=== PATIENT | female | born 1995 | race Caucasian/White ===

== ENCOUNTER 2020-01-08 19:55 | Emergency (ER) | payer BC, SELFPAY ==
[2020-01-08 19:57] VITALS: BP 113/56; PULSE 82; RESP 18; TEMP 37.1; O2SAT 100
--- NOTE | 2020-01-08 20:17 | ED.FALL ---
HPI - Fall General Chief Complaint: Fall Stated Complaint: SKATEBOARD ACCIDENT Time Seen by Provider: 01/08/20 20:07 History of Present Illness HPI Narrative: She had a fall from skateboard while going down a hill. She struck her head on a curb. Unsure of speed. No LOC. Initially felt nauseated and dizzy. Now she has a mild headache. She also sustained abrasions to the forehead, elbows, and forearms. Related Data Home Medications Medication Instructions Recorded Confirmed No Home Medications 01/08/20 01/08/20 Allergies Allergy/AdvReac Type Severity Reaction Status Date / Time No Known Allergies Allergy Unverified 01/08/20 20:13 Review of Systems Review of Systems: All systems reviewed & are unremarkable except as noted in HPI and below Constitutional: Constitutional: Denies fever(s) and Denies weakness Cardiovascular: Cardiovascular: Denies chest pain Respiratory: Respiratory: Denies dyspnea Gastrointestinal: Gastrointestinal: Denies abdominal pain, Reports nausea and Denies vomiting Musculoskeletal: Musculoskeletal: Denies back pain Neurologic: Reports headache(s), Denies numbness and Denies weakness [facility] Social History Social History Gender identity (if verbalized by the patient): Female Exam Const: General: healthy appearing, no acute distress and alert Orientation/consciousness: patient oriented x3 HENMT: Other: Abrasion over the left eye Eyes: Pupils: Equal, round and reactive pupils present EOM: EOMs intact bilaterally Neck: Neck: normal visual inspection and no lymphadenopathy Chest: Chest palpation & inspection: no tenderness Resp: Effort & Inspection: normal respiratory effort Auscultation: clear to auscultation bilaterally, no rales, no rhonchi and no wheezes Cardio: Jugular venous distension: no JVD Rate: regular rate Rhythm: regular rhythm Heart sounds: no murmurs GI: GI Palp: Yes Soft to palpation and No Tenderness to palpation present (GI) Skin: Other: Abrasions to forearms bilaterally Neuro: General: patient oriented x3, moves all extremities, no focal motor deficits and CN's II-XI intact bilaterally Speech: normal speech Gait exam (Neuro): Normal gait present Extrem: General: no edema Psych: Appearance: well kempt Affect: normal affect Course Vital Signs Vital signs: Vital Signs Temperature 37.1 C 01/08/20 19:57 Pulse Rate 82 01/08/20 19:57 Respiratory Rate 18 01/08/20 19:57 Blood Pressure 113/56 L 01/08/20 19:57 Pulse Oximetry 100 01/08/20 19:57 Temperature 37.1 C 01/08/20 19:57 Pulse Rate 82 01/08/20 19:57 Respiratory Rate 16 01/08/20 21:00 Blood Pressure 113/56 L 01/08/20 19:57 Pulse Oximetry 100 01/08/20 19:57 MDM - Fall MDM Narrative Medical decision making narrative: Normal GCS. No deficits. No indication for imaging. Observed for 1 hour with no worsening of symptoms. Discharge Plan Discharge Clinical Impression: Closed head injury Qualifiers: Encounter type: initial encounter Qualified Code(s): S09.90XA - Unspecified injury of head, initial encounter Patient Disposition: Home, Self-Care Condition: Stable Instructions: Head Injury (ED) Prescriptions: No Action No Home Medications RF: 0 Interventions: Discharge Disposition Last Done: 01/08/20 21:00 IV Stop Time Documented Last Done: 01/08/20 21:00 Follow-up/Referrals: Jarett Cade MD [Physician] - PHYSICIAN,[employer]PECTOR [Primary Care Provider] - Discharge Date/Time: 01/08/20 21:00
[2020-01-08] MEDS: IBUPROFEN 600 MG TABLET PO (20:21)
[2020-01-08] MEDS: ACETAMINOPHEN 500 MG TABLET 1000 MG PO (20:22)
[2020-01-08 21:00] VITALS: RESP 16
== END 2020-01-08 21:00 | disposition home or self-care (01) ==
PROVIDERS: Emergency Provider Emergency Medicine
DX: S09.90XA Unspecified injury of head, initial encounter (principal); V00.131A Fall from skateboard, initial encounter; Y93.51 Activity, roller skating (inline) and skateboarding
CPT/HCPCS: 99283; A9270